=== PATIENT | female | born 1955 | race Caucasian/White ===

== ENCOUNTER 2019-06-29 20:02 | Emergency (ER) | payer MEDICARE ==
[2019-06-29] MEDS ORDERED: Hydrocortisone Acetate 25 MG Supp RECTAL STA (20:37)
[2019-06-29] MEDS ORDERED: Acetaminophen/HYDROcodone 325-5 MG Tab PO ONE (20:38)
--- NOTE | 2019-06-29 20:44 | EDM.PDOC ---
ED HPI GENERAL MEDICAL PROBLEM - General Stated Complaint: HEMROIDS Time Seen by Provider: 06/29/19 20:10 Source of Information: Reports: Patient History Limitations: Reports: No Limitations - History of Present Illness INITIAL COMMENTS - FREE TEXT/NARRATIVE: pt with chronic external hemorrhoids, has been in to see surgeon and had appointment scheduled for preop but in last one week has been having more pain bleeding only when she wipes is noted had banding done for internal hemorrhoids states she had run out of Prep-H main concern is pain has chronic diarrhea - Related Data Allergies Allergy/AdvReac Type Severity Reaction Status Date / Time Sulfa (Sulfonamide Allergy Anaphylactic Verified 11/19/14 20:07 Antibiotics) Shock lidocaine Allergy Swelling Uncoded 11/19/14 20:10 Home Meds: Home Meds Albuterol [Proair HFA] 2 puff INH Q4HR PRN 10/04/15 [History] Azithromycin 500 mg PO DAILY #5 tablet 10/04/15 [Rx] Doxepin HCl 150 mg PO BEDTIME 10/04/15 [History] Furosemide 20 mg PO 1200 10/04/15 [History] Furosemide 40 mg PO DAILY 10/04/15 [History] Hydrocodone/Acetaminophen [Hydrocodon-Acetaminoph 7.5-325] 1 each PO Q4HR PRN # 16 tablet 10/04/15 [Rx] LORazepam 0.5 mg PO DAILY PRN 10/04/15 [History] Levothyroxine Sodium [Levoxyl] 50 mcg PO DAILY 10/04/15 [History] Meloxicam 15 mg PO DAILY 10/04/15 [History] Methylphenidate [Ritalin SR] 20 mg PO DAILY 10/04/15 [History] Sertraline HCl 200 mg PO DAILY 10/04/15 [History] predniSONE [Prednisone] 10 mg PO BEDTIME #14 tablet 10/04/15 [Rx] Hydrocortisone Acetate [Anusol-Hc] 25 mg RC BEDTIME #30 supp.rect 06/29/19 [Rx] metroNIDAZOLE [Flagyl] 500 mg PO Q12H #20 tab 06/29/19 [Rx] Past Medical History Cardiovascular History: Reports: Heart Failure, Hypertension Respiratory History: Reports: COPD Musculoskeletal History: Reports: Arthritis Psychiatric History: Reports: Addiction, Anxiety, PTSD Endocrine/Metabolic History: Reports: Hypothyroidism ED ROS GENERAL - Review of Systems Review Of Systems: Comprehensive ROS is negative, except as noted in HPI. ED EXAM, GI/ABD - Physical Exam Exam: See Below Exam Limited By: No Limitations General Appearance: Alert, WD/WN, No Apparent Distress Eyes: Bilateral: EOMI Ears: Normal External Exam Throat/Mouth: Normal Oropharynx Head: Normocephalic Neck: Supple, Non-Tender, Full Range of Motion Rectal (Female) Exam: Heme - Stool, Hemorrhoids (external hemorrhoids noted ), Tenderness Extremities: Normal Range of Motion Neurological: Alert, Oriented Course - Orders/Labs/Meds Orders: Medication Orders Hydrocodone Bitart/Acetaminophen (Stuart 325-5 Mg) 1 tab PO ONETIME ONE Stop: 06/29/19 20:39 Meds: Medications Generic Name Dose Route Start Last Admin Trade Name Freq PRN Reason Stop Dose Admin Hydrocodone Bitart/Acetaminophen 1 tab 06/29/19 20:38 Stuart 325-5 Mg PO 06/29/19 20:39 ONETIME ONE Discontinued Medications Generic Name Dose Route Start Last Admin Trade Name Freq PRN Reason Stop Dose Admin Hydrocortisone Acetate 25 mg 06/29/19 20:37 Anucort-Hc RECTAL 06/29/19 20:38 NOW STA Departure - Departure Time of Disposition: 20:45 Disposition: Home, Self-Care 01 Clinical Impression: External hemorrhoids with other complication, External prolapsed hemorrhoids - Discharge Information *PRESCRIPTION DRUG MONITORING PROGRAM REVIEWED*: Not Applicable *COPY OF PRESCRIPTION DRUG MONITORING REPORT IN PATIENT CAL: Not Applicable Instructions: Surgical Procedures for Hemorrhoids, Hemorrhoids, [id number], Nonsurgical Procedures for Hemorrhoids Referrals: Lopez Prakash PA-C [Primary Care Provider] - Additional Instructions: 1) Warm sitzs bath 3 times daily 2) Keep appointment with surgeon 3) Make appointment with your PCP for preop
[2019-06-30 05:54] VITALS: BP 139/81; PULSE 72
== END 2019-06-29 20:59 | disposition home or self-care (01) ==
LOC: FB.ED 20:02
DX: K64.4 Residual hemorrhoidal skin tags (principal); K64.8 Other hemorrhoids; F41.9 Anxiety disorder, unspecified; E03.9 Hypothyroidism, unspecified; I11.0 Hypertensive heart disease with heart failure; I50.9 Heart failure, unspecified; J44.9 Chronic obstructive pulmonary disease, unspecified; M19.90 Unspecified osteoarthritis, unspecified site; Z88.2 Allergy status to sulfonamides; Z88.4 Allergy status to anesthetic agent; Z79.899 Other long term (current) drug therapy; Z79.890 Hormone replacement therapy; Z79.52 Long term (current) use of systemic steroids
CPT/HCPCS: 99282; A9270